=== PATIENT | male | born 1945 | race Caucasian/White ===

== ENCOUNTER 2018-11-06 11:07 | Outpatient (CLI) ==
--- NOTE | 2018-11-06 12:18 | DI ---
EXAM: CHEST FRONTAL AND LATERAL VIEWS HISTORY: Cough. COMPARISON: None FINDINGS: Heart size and mediastinal contour within normal limits. No acute infiltrates. Vivian l vascularity with no pleural fluid or pneumothorax. The bony thorax has no acute finding. IMPRESSION: No acute cardiopulmonary process.
--- NOTE | 2018-11-06 15:28 | CT ---
EXAM: CT ABDOMEN AND PELVIS HISTORY: Lower abdominal pain TECHNIQUE: CT abdomen and pelvis without intravenous contrast. Images were reconstructed using 5 mm section thickness. Reformations were prepared. COMPARISON: None FINDINGS: Diagnostic limitations may exist without including contrast enhanced images. No focal hepatic or spl enic lesions were identified. Gallbladder, pancreas and adrenal glands are within normal limits. Se veral small bilateral renal calcifications are present measuring about 3 mm or less. These may repre sent a combination of vascular calcifications and renal stones. There are a few tiny parapelvic cyst s suggested bilaterally within the kidneys. No evidence of hydronephrosis or ureteral obstruction. Minimal atherosclerotic disease is noted. There are a few tiny mesenteric root lymph nodes which are nonspecific. Stomach is within normal limits. Normal appendix and general bowel gas pattern. The urinary bladder is within normal limits. No evidence of prostate enlargement. No ascites is noted. There is a small fatty umbilical hernia with a transverse neck of about 1 cm. The bones reveal moder ate to severe degenerative changes of the lower spine with mild scoliosis. Lung bases are free of ac [place] infiltrate. There is no pneumoperitoneum identified. IMPRESSION: 1. No clear etiology for the patient's symptoms of abdominal pain. 2. Bilateral nephrolithiasis without hydronephrosis or ureteral obstruction. 3. Small parapelvic renal cysts are suggested. 4. Tiny nonspecific mesenteric root lymph nodes. 5. Normal appendix. Unremarkable bowel gas pattern. 6. Small fatty umbilical hernia. 7. Significant degenerative changes of the lower spine.
== END 2018-11-06 11:08 | disposition home or self-care (01) ==
LOC: RAD 11:07
PROVIDERS: ATTEND General Practice
DX: R10.30 Lower abdominal pain, unspecified (principal); R05 Cough; E78.00 Pure hypercholesterolemia, unspecified; Z12.5 Encounter for screening for malignant neoplasm of prostate; R19.7 Diarrhea, unspecified
CPT/HCPCS: 36415; 80053; 80061; 81001; 82272; 85025; 87015; 87045; 87899

== ENCOUNTER 2018-11-06 11:19 | Outpatient (CLI) | END 2018-11-06 11:20 | disposition home or self-care (01) | LOC: RHC-LAB 11:19 | PROVIDERS: ATTEND General Practice | DX: R10.30 Lower abdominal pain, unspecified (principal); E78.00 Pure hypercholesterolemia, unspecified; Z12.5 Encounter for screening for malignant neoplasm of prostate; R19.7 Diarrhea, unspecified | CPT/HCPCS: 36415; 80053; 80061; 81001; 82272; 85025; 87015; 87045; 87899 ==